=== PATIENT | female | born 1955 ===

== ENCOUNTER 2025-10-06 11:15 | Inpatient (IN) | payer OTHER ==
[~2025-10-06] VITALS: Ht 157.5 cm; Wt 68.9 kg
[2025-10-06] MEDS ORDERED: ZESTRIL5 MG PO (12:48)
[2025-10-06] MEDS ORDERED: SONATA10 MG PO (12:49)
[2025-10-06] MEDS ORDERED: ROSUVASTATIN CA10 MG PO (12:49)
[2025-10-06] MEDS ORDERED: TAMS0.4C PO (12:49)
[2025-10-13] MEDS ORDERED: LIDOCAINE HCL 1%/EPINEPHRINE 20ML VIAL IJ ONE (08:30)
[2025-10-13] MEDS ORDERED: CEFTRIAXONE SODIUM 2,000 MG VIAL IV ONE (08:30)
[2025-10-13] MEDS ORDERED: METRONIDAZOLE/SODIUM CHLORIDE 500 MG/100 ML PIGGYBACK IV ONE (08:30)
[2025-10-13] MEDS ORDERED: BUPIVACAINE HCL/PF 0.25% 30ML VIAL InF ONE (08:30)
[2025-10-13] MEDS ORDERED: SUGAMMADEX SODIUM 200 MG/2 ML VIAL IV ONE (09:20)
[2025-10-13] MEDS ORDERED: ENALAPRILAT DIHYDRATE 1.25 MG/ML VIAL IV PRN (13:00)
[2025-10-13] MEDS ORDERED: OxyCODONE HCL 5 MG TABLET (ROXICODONE) PO PRN (14:15)
[2025-10-13] MEDS ORDERED: ONDANSETRON HCL 2 MG/ML VIAL IV PRN (14:15)
[2025-10-13] MEDS ORDERED: MORPHINE SULFATE 4 MG/ML CARTRIDGE IV PRN (14:15)
[2025-10-13] MEDS ORDERED: RINGERS SOLUTION,LACTATED 1,000 ML IV SCH (14:15)
[2025-10-13 15:58] LABS: BASO % 0.1 % (0.1-1.2); EOS # 0.00 (0.04-0.54); EOS % 0.0 % (0.7-7.0); LYMPH # 0.89 (1.18-3.74); LYMPH % 5.9 % (19.3-53.1); MEAN PLATELET VOLUME 10.10 fl (9.4-12.4); MONO # 1.11 (0.24-0.82); MONO % 7.4 % (4.7-12.5); NEUT # 13.00 (1.56-6.13); NEUT % 86.3 % (34.0-71.1); RED CELL DISTRIBUTION WIDTH 12.7 % (11.6-14.4)
[2025-10-13] MEDS ORDERED: SIMETHICONE 125 MG CAPSULE PO ONE (16:01)
[2025-10-13] MEDS ORDERED: HYOSCYAMINE SULFATE 0.125 MG TAB.SUBL ONE (16:01)
[2025-10-13] MEDS ORDERED: GABAPENTIN 300 MG CAPSULE PO ONE (16:02)
[2025-10-13] MEDS ORDERED: CELECOXIB 200 MG CAPSULE PO ONE (16:02)
[2025-10-13] MEDS ORDERED: METOCLOPRAMIDE HCL 5 MG/ML VIAL IV SCH (17:00)
[2025-10-13] MEDS ORDERED: CELECOXIB 200 MG CAPSULE PO SCH (17:00)
[2025-10-13] MEDS ORDERED: HYOSCYAMINE SULFATE 0.125 MG TAB.SUBL SL SCH (17:00)
[2025-10-13] MEDS ORDERED: GABAPENTIN 300 MG CAPSULE PO SCH (17:00)
[2025-10-13] MEDS ORDERED: SIMETHICONE 125 MG CAPSULE PO SCH (17:00)
[2025-10-13 17:57] VITALS: BP 137/73; O2SAT 100
[2025-10-13] MEDS ORDERED: ACETAMINOPHEN 500 MG GEL..CAP PO SCH (20:00)
[2025-10-13] MEDS ORDERED: FAMOTIDINE/PF 20 MG/2 ML VIAL IV PUSH SCH (21:00)
[2025-10-13] MEDS ORDERED: TAMSULOSIN HCL 0.4 MG CAP PO SCH (21:00)
[2025-10-14 00:48] VITALS: BP 118/69; O2SAT 98
[2025-10-14 07:48] LABS: BASO % 0.2 % (0.1-1.2); EOS # 0.01 (0.04-0.54); EOS % 0.1 % (0.7-7.0); LYMPH # 1.50 (1.18-3.74); LYMPH % 16.9 % (19.3-53.1); MEAN PLATELET VOLUME 10.70 fl (9.4-12.4); MONO # 1.08 (0.24-0.82); NEUT # 6.25 (1.56-6.13); NEUT % 70.4 % (34.0-71.1); RED CELL DISTRIBUTION WIDTH 13.0 % (11.6-14.4)
[2025-10-14 07:55] LABS: MONO % 12.2 % (4.7-12.5)
[2025-10-14 08:00] VITALS: BP 92/51; O2SAT 96
[2025-10-14 08:17] LABS: BUN CREA RATIO 15.0 (7.0-25.0); CREATININE SERUM 0.54 mg/dL (0.55-1.02); GFR 112.27; GLUCOSE FASTING 98.0 mg/dL (65-100); OSMOLALITY SERUM 278.0 MOSM/KG (275-295)
[2025-10-14] MEDS ORDERED: LACTOBACILLUS ACIDOPHILUS 1 CAP CAP PO SCH (09:00)
[2025-10-14] MEDS ORDERED: LISINOPRIL 5 MG TABLET PO SCH (09:00)
[2025-10-14] MEDS ORDERED: BETHANECHOL CHLORIDE 25 MG TABLET PO SCH (09:00)
[2025-10-14] MEDS ORDERED: LACTULOSE 20 G/30 ML BLIST.PACK PO SCH (09:00)
[2025-10-14] MEDS ORDERED: POTASSIUM PHOS,M-BASIC-D-BASIC 9 MM in 0.9 % SODIUM CHLORIDE 250 ML IV ONE (13:00)
[2025-10-14 16:00] VITALS: BP 94/58; O2SAT 99
[2025-10-14] MEDS ORDERED: AMINO ACIDS/PROTEIN HYDROLYS 30 ML BLIST.PACK PO SCH (17:00)
[2025-10-14] MEDS ORDERED: ROSUVASTATIN CALCIUM 10 MG TABLET PO SCH (17:00)
[2025-10-14] MEDS ORDERED: ENOXAPARIN SODIUM 40 MG/0.4 ML SYRINGE SUBCUTANEO SCH (17:00)
[2025-10-15 07:46] LABS: BASO % 0.5 % (0.1-1.2); EOS # 0.04 (0.04-0.54); EOS % 0.6 % (0.7-7.0); LYMPH # 1.44 (1.18-3.74); LYMPH % 23.0 % (19.3-53.1); MEAN PLATELET VOLUME 10.70 fl (9.4-12.4); MONO # 0.79 (0.24-0.82); NEUT # 3.95 (1.56-6.13); NEUT % 63.0 % (34.0-71.1); RED CELL DISTRIBUTION WIDTH 13.2 % (11.6-14.4)
[2025-10-15 07:55] LABS: MONO % 12.6 % (4.7-12.5)
[2025-10-15 08:03] VITALS: BP 114/73; O2SAT 99
[2025-10-15 08:24] LABS: BUN CREA RATIO 12.0 (7.0-25.0); CREATININE SERUM 0.6 mg/dL (0.55-1.02); GFR 99.41; GLUCOSE FASTING 98.0 mg/dL (65-100); OSMOLALITY SERUM 289.0 MOSM/KG (275-295)
[2025-10-15] MEDS ORDERED: ENOXAPARIN SODIUM 40 MG/0.4 ML SYRINGE SUBCUTANEO SCH (09:00)
[2025-10-15] MEDS ORDERED: NAPH,MB-DB/K PH,MBDB 1 PKT PACKET PO NR (10:00)
[2025-10-15 17:20] VITALS: BP 125/61; O2SAT 99
[2025-10-15 23:55] VITALS: BP 103/65; O2SAT 98
[2025-10-16 08:37] VITALS: BP 135/79; O2SAT 99
[2025-10-16 17:28] VITALS: BP 113/58; O2SAT 100
== END 2025-10-16 20:41 | disposition home or self-care (01) | DRG 330 ==
LOC: SURH 10-13 07:00 → O/R 10-13 07:00 → SURH 10-13 11:00
PROVIDERS: Internal Medicine Geriatric Medicine; ADMIT Colon & Rectal Surgery; ATTEND Colon & Rectal Surgery
PROC: 0DBP4ZZ Excision of Rectum, Percutaneous Endoscopic Approach (ICD-10-PCS; 2025-10-13)
PROC: 0DJD8ZZ Inspection of Lower Intestinal Tract, Via Natural or Artificial Opening Endoscopic (ICD-10-PCS; 2025-10-13)
PROC: 0DTN4ZZ Resection of Sigmoid Colon, Percutaneous Endoscopic Approach (ICD-10-PCS; principal; 2025-10-13 11:00)
DX: K57.32 Diverticulitis of large intestine without perforation or abscess without bleeding (principal); K92.1 Melena; K66.0 Peritoneal adhesions (postprocedural) (postinfection); E83.39 Other disorders of phosphorus metabolism; D64.89 Other specified anemias; I10 Essential (primary) hypertension